=== PATIENT | male | born 1950 | race Hispanic/Latino ===

== ENCOUNTER 2017-10-24 16:52 | Outpatient (CLI) | payer MEDICARE, MEDICAID ==
--- NOTE | 2017-10-24 18:04 | RAD ---
LEFT TIBIA AND FIBULA TWO VIEWS: HISTORY: A 67-year-old male with a history of left leg injury and follow-up fracture. Prior surgery in [place] . Now has a wound over the inner aspect of the leg. FINDINGS: A metal plate and screws stabilize the distal fibula and lateral malleolus, and a wire and pin stabil ize the medial malleolus. 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 No evidence for a new fracture. I f there is clinical concern for osteomyelitis, follow-up non-emergent MRI might be of benefit. IMPRESSION: Postoperative changes of the medial and lateral ankle with severe arthrosis of the tibiotalar joint a nd associated deformity without acute fracture. If there is concern for osteomyelitis, consider foll ow-up non-emergent MRI. POS: [facility]
== END 2017-10-24 16:53 | disposition home or self-care (01) ==
LOC: SCSRAD 16:52
PROVIDERS: ATTEND Family Medicine
DX: L03.116 Cellulitis of left lower limb (principal); M19.072 Primary osteoarthritis, left ankle and foot; Z98.890 Other specified postprocedural states

== ENCOUNTER 2017-11-30 13:54 | Outpatient (CLI) | payer MEDICARE, OTHER ==
--- NOTE | 2017-12-01 09:30 | HP ---
DATE OF SERVICE: 11/30/2017 HISTORY OF PRESENT ILLNESS: Mr. Richard Lawler is a very pleasant 67-year-old gentleman who prese nts to the [facility] for evaluation of an ulceration of the left lateral ankle. The patient state s with his niece serving as baby registry sales consultant that 7-12 months ago he first experienced an ulceration of his left lateral lower leg. The patient states that the ulcerations of his left lateral lower leg are p resent on an intermittent basis. He states that the ulcer, now present, was first noted approximatel y 8-10 days ago. The patient has been receiving dressing changes for the ulceration of the left late ral lower leg with the assistance of Home Health. These dressing changes consist of Triple Antibioti c ointment followed by a Band-Aid and Tegaderm. The patient was referred to the Wound Center by Dr. Jimenez. The patient's niece states that Mr. Lawler was placed on a course of Bactrim by Dr. Chad perez. Apparently plain films of the left ankle were also obtained. PAST MEDICAL HISTORY: 1. History of TB, treated. 2. Cirrhosis. 3. Right buttock abscess. 4. Hypertension. PAST SURGICAL HISTORY: 1. Orthopedic surgery of right leg. 2. Multiple right and left ankle surgeries. The patient underwent left ankle surgery 4 years ago. MEDICATIONS: 1. Enalapril. 2. Bactrim. ALLERGIES: No known diagnosed allergies. SOCIAL HISTORY: Significant for heavy ETOH use in the remote past. The patient denies any history o f tobacco use. FAMILY HISTORY: Significant for diabetes mellitus. The patient's mother and 5 brothers were diagnos ed with diabetes mellitus. Family history is also significant for coronary artery disease. Apparent ly, the patient's mother was diagnosed with coronary artery disease. PHYSICAL EXAMINATION: VITAL SIGNS: Temperature 97.9, pulse 112, respirations 19, blood pressure 166/90. GENERAL: A 67-year-old gentleman lying on stretcher in examination room in no acute distress. HEENT: Normocephalic, atraumatic. NECK: No nuchal rigidity. CHEST: Clear to auscultation. CARDIAC: Regular rate and rhythm. ABDOMEN: Soft. EXTREMITIES: The ulceration of the left lateral ankle has healed completely. No cellulitis of the l eft ankle is present. No maceration of the skin of the left ankle is present. A posterior tibial pu lse is easily palpable on the left. No significant edema of the left foot or lower leg is present on exam today. NEUROLOGIC: Grossly nonfocal. ASSESSMENT AND PLAN: 1. 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 As stated above, this ulceration has healed c ompletely. The patient has been given a prescription for compression garments, knee high, open or cl osed toe to yield a compression of 20-30 mmHg. The patient has been instructed to apply the garments each morning and remove the garments at night. I have explained to the patient that the use of comp ression stockings may prevent any new or recurrent ulcerations. The patient has also been instructed to continue Bactrim DS as previously prescribed. Plain films of the left tibia and fibula obtained on 10/24/2017 showed postoperative changes of the medial and lateral ankle with severe arthrosis of t he tibiotalar joint and associated deformity without acute fracture. The patient and his niece under stand and are in agreement with the preceding treatment plan. Mr. Lawler will be discharged from [facility] today with followup on a p.r.n. basis. 2. History of tuberculosis treated. 3. Cirrhosis. 4. Right buttock abscess. 5. Hypertension.
== END 2017-11-30 13:55 | disposition home or self-care (01) ==
LOC: WCC 13:54
PROVIDERS: ATTEND Family Medicine
DX: I83.023 Varicose veins of left lower extremity with ulcer of ankle (principal); L97.329 Non-pressure chronic ulcer of left ankle with unspecified severity; L02.31 Cutaneous abscess of buttock; K74.60 Unspecified cirrhosis of liver; I10 Essential (primary) hypertension; Z86.11 Personal history of tuberculosis
CPT/HCPCS: 97139; 97602; G0463; 99203

== ENCOUNTER 2018-10-10 13:18 | Outpatient (CLI) | payer MEDICARE, MEDICAID ==
--- NOTE | 2018-10-10 13:51 | RAD ---
CHEST 2 VIEWS: HISTORY: Dyspnea. COMPARISON: 03/25/2012. FINDINGS: Chronic changes of the lung parenchyma. No pneumothorax. Stable cardiac silhouette. Old rib fractures are noted. IMPRESSION: Chronic fibrotic changes of the lung parenchyma. POS: [facility]
== END 2018-10-10 13:19 | disposition home or self-care (01) ==
LOC: RAD 13:18
PROVIDERS: ATTEND Internal Medicine Critical Care Medicine
DX: R06.00 Dyspnea, unspecified (principal); J98.4 Other disorders of lung
CPT/HCPCS: 71046

== ENCOUNTER 2018-10-16 09:10 | Outpatient (CLI) | payer MEDICARE, MEDICAID ==
--- NOTE | 2018-10-16 09:33 | PRG ---
DATE OF SERVICE: 10/16/2018 HISTORY: Mr. Richard Lawler is a very pleasant 67-year-old gentleman, who presents to the [facility] Center for evaluation of an ulceration of the left medial ankle. The patient was last seen in the Wound Center on 11/30/2017 for an ulceration of his left lateral lower leg. At the time the patient was seen, the ulceration of the left lateral ankle had healed completely and the patient was given a prescription for compression garments, knee-high, open or closed toe to yield a compression of 20-30 mmHg. With the aid of a university teacher, the patient states that his compression garment is in [place]. For the ulceration of the left medial ankle now present, the patient has been performing dressing changes of Medihoney and gauze as per Dr. Bosch. At the time of dressing changes, Desitin is being applied to the periwound. The patient was referred to the Wound Center by Dr. Bosch on 09/27/2018. PHYSICAL EXAMINATION: VITAL SIGNS: Temperature 97.5, pulse 106, respirations 20, blood pressure 139/74. EXTREMITIES: An ulceration of the left medial ankle is present, which measures approximately 0.4 x 0.3 cm. No purulent drainage is associated with the wound. No erythema of the skin surrounding the wound is present. No maceration of the skin of the periwound is noted. No significant edema of the left foot or lower leg is present on exam today. The ulceration is present over a bony prominence subsequent to severe arthrosis of the tibiotalar joint. DIAGNOSTIC DATA: Plain films of the left tibia and fibula obtained on 10/24/2017 showed postoperative changes of the medial and lateral ankle with severe arthrosis of the tibiotalar joint and associated deformity without acute fracture. ASSESSMENT AND PLAN: 1. 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 Today, the patient states that he has not noted any drainage associated with the ulceration. The patient has been instructed to perform dressing changes of Allevyn three times per week after cleansing and irrigation. For drainage, the patient is to utilize Medihoney followed by Allevyn three times per week after cleansing and irrigation. Arrangements will be made for the home delivery of dressing supplies. I will see Mr. Lawler again in 4 weeks. 2. History of tuberculosis, treated. 3. Cirrhosis. 4. Right buttock abscess. 5. Hypertension. Job ID: [id number]
[2018-10-16] MEDS ORDERED: Sodium Chloride 0.9% 15 ML NEB ONE (18:00)
== END 2018-10-16 09:11 | disposition home or self-care (01) ==
LOC: WCC 09:10
PROVIDERS: ATTEND Family Medicine
DX: I83.029 Varicose veins of left lower extremity with ulcer of unspecified site (principal); L97.929 Non-pressure chronic ulcer of unspecified part of left lower leg with unspecified severity; K74.60 Unspecified cirrhosis of liver; L02.31 Cutaneous abscess of buttock; I10 Essential (primary) hypertension
CPT/HCPCS: A4218

== ENCOUNTER 2019-05-07 12:49 | Outpatient (CLI) | payer MEDICARE, MEDICAID ==
--- NOTE | 2019-05-07 18:26 | RAD ---
CHEST TWO VIEWS: Date: 05-07-19 Comparison:03-25-12, 03-01-19, 10-10-18 History: Dyspnea FINDINGS: There are severe coarse increased linear interstitial densities noted throughout both lungs with an u pper lobe predominance, left greater than right. There is stable pleural thickening involving the lef t lung apex with retraction of the left hilum. No pneumothorax, pleural fluid, or lobar consolidation . The degree of linear interstitial density when compared to the 03-01-19 examination has improved within the lung bases. There has been no significant interval change when compared to the 10-10-18 examinati on. The degree of interstitial opacity has progressed in the lung bases when compared to 03-25-12. IMPRESSION: Persistent severe interstitial disease with an upper lobe predominance as detailed above. POS: [facility]
== END 2019-05-07 12:50 | disposition home or self-care (01) ==
LOC: RAD 12:49
PROVIDERS: ATTEND Internal Medicine Critical Care Medicine
DX: R06.00 Dyspnea, unspecified (principal); J84.89 Other specified interstitial pulmonary diseases
CPT/HCPCS: 71046

== ENCOUNTER 2019-05-07 14:37 | Inpatient (IN) | payer MEDICARE, MEDICAID ==
[~2019-05-07 14:37] MED LIST: Lidocaine 1% PF 5 ML VIAL ONE; Ondansetron PF 4 MG/2 ML Vial ONE; PROPOFOL 200 MG/20 ML VIAL ONE
[2019-05-07 17:04] LABS: #Basophils 0.1 thou/uL (0.0-0.2); #Eosinphils 0.1 thou/uL (0.0-0.7); #Monocytes 0.7 thou/uL (0.11-0.59); #Neutrophils 5.9 thou/uL (1.40-6.50); %Basophils 0.7 % (0.0-1.0); %Eosinophils 0.7 % (0.0-10.0); %Lymphocytes 12.4 % (21.0-51.0); %Monocytes 8.9 % (0.0-10.0); %Neutrophils 77.2 % (42.0-75.0); Hemoglobin 16.3 g/dL (14.0-18.0); Mean Corpuscular HGB CONC 35.1 g/dL (32.0-36.0); Mean Corpuscular Hemoglobin 34.7 pg (27.0-31.0); Mean Corpuscular Volume 98.9 fL (78.0-98.0); Mean Platelet Volume 7.6 fL (7.4-10.4); Platelet Count 175 thou/uL (130-400); RBC Distribution Width 12.5 % (11.5-14.5); White Blood Cell (WBC) Count 7.7 thou/uL (4.8-10.8)
[2019-05-07] MEDS ORDERED: Piperacillin/Tazobactam 4.5 GM VIAL ONE (17:08)
[2019-05-07 17:19] LABS: ALT (SGPT) 10 U/L (8-55); AST (SGOT) 18 U/L (5-34); Albumin 4.2 g/dL (3.4-4.8); Alkaline Phosphatase 83 U/L (40-110); Anion Gap 12 mmol/L (10-20); BUN (Urea Nitrogen) 12 mg/dL (8.4-25.7); Bilirubin, Total 1.7 mg/dL (0.2-1.2); CK (CPK) 72 U/L (30-200); Calc. Creatinine Clearance 0 mL/min (70-130); Calcium 9.4 mg/dL (7.8-10.44); Carbon Dioxide 23 mmol/L (23-31); Chloride 98 mmol/L (98-107); Estimated GFR-MDRD Greater than 90; Globulin 3.7 g/dL (2.4-3.5); Glucose 112 mg/dL (80-115); Potassium 4.5 mmol/L (3.5-5.1); Protein, Total 7.9 g/dL (5.8-8.1); Sodium 128 mmol/L (136-145)
--- NOTE | 2019-05-07 17:33 | RAD ---
MIDDLE DIGIT RIGHT HAND MINIMUM 2 VIEWS: CLINICAL HISTORY: Infection. FINDINGS: Abnormal soft tissue prominence of the distal aspect of the middle digit. There is osseous irregulari ty at the tuft with a small area of heterotopic/avulsed bone adjacent osseous defect of the distal phalangeal tuft. Scattered osteoarthritis. IMPRESSION: Soft tissue prominence at the distal third digit with associated osseous abnormality of the distal ph alangeal tuft. Underlying osteomyelitis is therefore not excluded. Recommend clinical correlation. Transcribed Date/Time: 05/07/2019 5:39 PM
[2019-05-07] MEDS ORDERED: Sodium Chloride 0.9% 0 ML ONE (23:42)
[2019-05-07] MEDS ORDERED: Bupivacaine PF 0.5% 30 ML VIAL ONE (23:42)
[2019-05-07] MEDS ORDERED: Bacitracin Zinc Ointment 30 gm TUBE ONE (23:42)
[2019-05-07] MEDS ORDERED: Fentanyl 100 MCG/2 ML VIAL ONE (23:50)
[2019-05-08] MEDS ORDERED: traMADol HCl 50 MG TAB PO PRN
[2019-05-08] MEDS ORDERED: Ondansetron PF 4 MG/2 ML Vial IVP PRN
[2019-05-08] MEDS ORDERED: Morphine 4 MG/ML VIAL SLOW IVP PRN
[2019-05-08] MEDS ORDERED: HYDROcodone/Acetaminophen 5/325 mg Tablet PO PRN
[2019-05-08] MEDS ORDERED: Milk Of Magnesia 30 ML UDCUP PO PRN
[2019-05-08] MEDS ORDERED: Acetaminophen 325 MG TAB PO PRN
[2019-05-08] MEDS ORDERED: Meperidine HCl/PF 25 MG/ML VIAL IM PRN (00:03)
[2019-05-08] MEDS ORDERED: Promethazine HCl 25 MG/ML VIAL IM PRN ×2 (00:56)
[2019-05-08] MEDS ORDERED: Ondansetron HCl/PF 4 MG/2 ML Vial IVP PRN (00:56)
[2019-05-08] MEDS ORDERED: Promethazine HCl 25 MG/ML VIAL SLOW IVP PRN (00:56)
[2019-05-08 02:23] VITALS: BMI 19.3
[2019-05-08] MEDS: Sodium Chloride 0.9% 1,000 ML IV SCH ×3 (02:34→23:06)
[2019-05-08] MEDS: Vancomycin HCl 750 MG in Sodium Chloride 0.9% 250 ML 250 ML IVPB SCH ×2 (05:30→17:04)
[2019-05-08 05:56] LABS: #Eosinphils 0.1 thou/uL (0.0-0.7); #Lymphocytes 1.4 thou/uL (1.20-3.40); #Monocytes 0.7 thou/uL (0.11-0.59); #Neutrophils 5.3 thou/uL (1.40-6.50); %Basophils 0.2 % (0.0-1.0); %Eosinophils 1.9 % (0.0-10.0); %Lymphocytes 18.6 % (21.0-51.0); %Monocytes 9.6 % (0.0-10.0); %Neutrophils 69.8 % (42.0-75.0); Hemoglobin 15.1 g/dL (14.0-18.0); Mean Corpuscular HGB CONC 35.5 g/dL (32.0-36.0); Mean Corpuscular Hemoglobin 35.4 pg (27.0-31.0); Mean Corpuscular Volume 99.6 fL (78.0-98.0); Mean Platelet Volume 7.7 fL (7.4-10.4); Platelet Count 159 thou/uL (130-400); RBC Distribution Width 12.6 % (11.5-14.5); Red Blood Cell (RBC) Count 4.26 mill/uL (4.70-6.10); White Blood Cell (WBC) Count 7.6 thou/uL (4.8-10.8)
[2019-05-08] MEDS ORDERED: TETANUS AND DIPHTHERIA TOX/PF 0.5 ML DISP.SYRIN IM SCH (09:00)
[2019-05-08] MEDS ORDERED: Vancomycin HCl 1 GM in Premix Bag 1 BAG IVPB SCH (09:00)
[2019-05-08] MEDS ORDERED: FLU VACC TS2019-20(65YR UP)/PF 180 MCG/0.5 ML SYRINGE IM ONE (09:00)
[2019-05-08] MEDS ORDERED: Prevnar 13-Val Conj/PF 0.5 ML SYRINGE IM ONE (09:00)
[2019-05-08] MEDS: Aspirin 81 mg Enteric Coated Tablet PO SCH ×2 (10:36→21:24)
[2019-05-09 06:41] LABS: Vancomycin, Trough 8.4 ug/mL
[2019-05-09] MEDS ORDERED: Vancomycin HCl 1 GM in Premix Bag 1 BAG IVPB SCH (08:00)
[2019-05-09] MEDS: Aspirin 81 mg Enteric Coated Tablet PO SCH (08:41)
[2019-05-09] MEDS: Sodium Chloride 0.9% 1,000 ML IV SCH ×2 (08:42→16:58)
[2019-05-09 08:58] VITALS: TEMP 98.3
[2019-05-09 12:14] VITALS: BP 137/81
--- NOTE | 2019-05-11 10:08 | OP ---
DATE OF PROCEDURE: 05/08/2019 PREOPERATIVE DIAGNOSES: 1. Subungual abscess, right middle finger. 2. Paronychia, right middle finger. POSTOPERATIVE DIAGNOSES: 1. Subungual abscess, right middle finger. 2. Paronychia, right middle finger. PROCEDURES PERFORMED: 1. Right middle finger paronychia incision and drainage. 2. Removal of right middle finger nail plate. SPECIMENS: Yes, culture x1. TOURNIQUET TIME: 4 minutes. FINDINGS: Abscess, beginning . DESCRIPTION OF PROCEDURE: After successful general endotracheal anesthesia, the limb was prepped and draped. We then gave the patient a 12 mL of 0.5% Marcaine block at the level of the right middle finger metacarpophalangeal joint. We then removed the nail, found the paronychia and then made an incision over the radial aspect of the periungual region, dissected down and removed the abscess. We also extended this incision 1 cm proximal to the nail matrix and found that the abscess that was under the skin, at the point just proximal to the nail matrix, was superficial and did not go down below the skin. We then left the approximately 15 mm incision open and released the tourniquet. We irrigated with 1 L of normal saline and then placed a 4 x 4 normal saline-soaked gauze piece underneath the skin flap and placed him in a bulky soft dressing. He left the operating room without evidence of anesthetic or operative complication. Job ID: [id number]
== END 2019-05-09 18:45 | disposition home or self-care (01) | DRG 603 ==
LOC: ERS 14:37 → SDC/OP 05-08 00:09 → ONC 05-08 00:11
PROVIDERS: ADMIT Orthopaedic Surgery Hand Surgery; ATTEND Orthopaedic Surgery Hand Surgery
PROC: 0H9FXZZ Drainage of Right Hand Skin, External Approach (ICD-10-PCS; principal; 2019-05-08)
DX: L02.511 Cutaneous abscess of right hand (principal); I10 Essential (primary) hypertension; L03.011 Cellulitis of right finger
CPT/HCPCS: 36415; 71046; 80053; 80202; 82550; 83605; 85025; 85652; 86140; 87040; 87070; 87077; 87186; 87205; 90471; 90662; 90670; 96365; 96367; G0008; G0009; J2001; J2405; J2543; J2704; J3010; J3370; J3490; J7050; S0020

== ENCOUNTER 2019-08-04 15:11 | Emergency (ER) | payer MEDICARE, OTHER ==
[2019-08-04 15:47] LABS: #Basophils 0.1 thou/uL (0.0-0.2); #Eosinphils 0.1 thou/uL (0.0-0.7); #Lymphocytes 1.1 thou/uL (1.20-3.40); #Monocytes 0.5 thou/uL (0.11-0.59); #Neutrophils 2.7 thou/uL (1.40-6.50); %Basophils 1.3 % (0.0-1.0); %Monocytes 11.4 % (0.0-10.0); %Neutrophils 60.4 % (42.0-75.0); Hemoglobin 17.9 g/dL (14.0-18.0); Mean Corpuscular HGB CONC 33.4 g/dL (32.0-36.0); Mean Corpuscular Hemoglobin 33.1 pg (27.0-31.0); Mean Corpuscular Volume 99.2 fL (78.0-98.0); Mean Platelet Volume 8.5 fL (7.4-10.4); Platelet Count 167 thou/uL (130-400); RBC Distribution Width 11.6 % (11.5-14.5); Red Blood Cell (RBC) Count 5.39 mill/uL (4.70-6.10); White Blood Cell (WBC) Count 4.5 thou/uL (4.8-10.8)
--- NOTE | 2019-08-04 15:58 | RAD ---
XR Chest 1 View Portable History: Shortness of breath Comparison: Radiograph April 2019 Findings: Extensive fibrosis and volume loss of both lungs, though asymmetrically worse on the left. No superimposed consolidation is appreciated. Impression: Findings of high-grade pulmonary fibrosis.
[2019-08-04 16:10] LABS: ALT (SGPT) 19 U/L (8-55); AST (SGOT) 22 U/L (5-34); Albumin 3.8 g/dL (3.4-4.8); Alkaline Phosphatase 83 U/L (40-110); Anion Gap 12 mmol/L (10-20); BUN (Urea Nitrogen) 17 mg/dL (8.4-25.7); Bilirubin, Total 0.8 mg/dL (0.2-1.2); Calc. Creatinine Clearance 0 mL/min (70-130); Calcium 9.1 mg/dL (7.8-10.44); Carbon Dioxide 29 mmol/L (23-31); Chloride 100 mmol/L (98-107); Estimated GFR-MDRD Greater than 90; Globulin 2.9 g/dL (2.4-3.5); Glucose 69 mg/dL (80-115); Protein, Total 6.7 g/dL (5.8-8.1); Sodium 137 mmol/L (136-145)
[2019-08-04] MEDS ORDERED: predniSONE 20 MG TAB ONE (16:22)
== END 2019-08-04 18:38 | disposition home or self-care (01) ==
LOC: ERS 15:11
DX: J44.1 Chronic obstructive pulmonary disease with (acute) exacerbation (principal); I10 Essential (primary) hypertension
CPT/HCPCS: 71045; 80053; 83605; 83880; 84484; 85025; 93005; J7512; J7620

== ENCOUNTER 2019-08-11 12:02 | Emergency (ER) | payer MEDICARE, OTHER ==
[~2019-08-11 12:02] MED LIST changes: +Iopamidol 370 76% 50 ML VIAL FS ONE; +Iopamidol-370 76% 500 ML 1 ML ONE; -Lidocaine 1% PF 5 ML VIAL ONE; -Ondansetron PF 4 MG/2 ML Vial ONE; -PROPOFOL 200 MG/20 ML VIAL ONE
[2019-08-11] MEDS ORDERED: Morphine 4 MG/ML VIAL ONE (12:32)
[2019-08-11 12:40] LABS: #Basophils 0.1 thou/uL (0.0-0.2); #Eosinphils 0.3 thou/uL (0.0-0.7); #Monocytes 0.4 thou/uL (0.11-0.59); #Neutrophils 2.9 thou/uL (1.40-6.50); %Basophils 1.2 % (0.0-1.0); %Eosinophils 6.5 % (0.0-10.0); %Lymphocytes 21.2 % (21.0-51.0); %Monocytes 9.5 % (0.0-10.0); %Neutrophils 61.6 % (42.0-75.0); Hemoglobin 17.7 g/dL (14.0-18.0); Mean Corpuscular HGB CONC 32.8 g/dL (32.0-36.0); Mean Corpuscular Hemoglobin 32.8 pg (27.0-31.0); Mean Platelet Volume 8.7 fL (7.4-10.4); Platelet Count 149 thou/uL (130-400); RBC Distribution Width 11.8 % (11.5-14.5); White Blood Cell (WBC) Count 4.7 thou/uL (4.8-10.8)
[2019-08-11 13:01] LABS: ALT (SGPT) 24 U/L (8-55); AST (SGOT) 22 U/L (5-34); Albumin 3.7 g/dL (3.4-4.8); Alkaline Phosphatase 75 U/L (40-110); Anion Gap 8 mmol/L (10-20); BUN (Urea Nitrogen) 11 mg/dL (8.4-25.7); Bilirubin, Total 1.1 mg/dL (0.2-1.2); Calc. Creatinine Clearance 0 mL/min (70-130); Calcium 9.2 mg/dL (7.8-10.44); Carbon Dioxide 33 mmol/L (23-31); Chloride 99 mmol/L (98-107); Estimated GFR-MDRD Greater than 90; Globulin 2.8 g/dL (2.4-3.5); Glucose 117 mg/dL (80-115); Lipase 29 U/L (8-78); Protein, Total 6.5 g/dL (5.8-8.1); Sodium 136 mmol/L (136-145)
[2019-08-11 13:20] LABS: Bilirubin Negative (Negative); Blood, Urine Negative (Negative); Clarity Extra Turbid (Clear); Glucose, Urine (Dipstick) Normal (Negative); Leukocyte Negative Leu/uL (Negative); Nitrite Negative (Negative); Protein, Urine (Dipstick) 10 mg/dL (Neg-Trace)
--- NOTE | 2019-08-11 15:23 | CT ---
EXAM: CT abdomen and pelvis with IV contrast PROVIDED CLINICAL HISTORY: Abdominal pain COMPARISON: None FINDINGS: Fibrotic changes are seen involving the visualized lung bases. Contrast material is seen within the d istal esophagus that may reflect gastroesophageal reflux. Evaluation is limited by patient respiratory motion. The solid abdominal organs demonstrate no significant abnormality. Bilateral renal hypodensities like ly reflecting cysts. There is no bowel dilatation, inflammatory fat stranding, free fluid or free air apparent. There is n o evidence for appendicitis. Gallstones are noted without associated gallbladder distention. There is moderate rectal fecal retention without evidence for surrounding fat stranding. No regional lymph node enlargement apparent. The regional major vascular structures appear unremarkable. The osseous structures demonstrate no concerning lytic or blastic lesions. IMPRESSION: No evidence for an acute process. Chronic findings as above.
== END 2019-08-11 16:00 | disposition home or self-care (01) ==
LOC: ERS 12:02
DX: R10.32 Left lower quadrant pain (principal); I10 Essential (primary) hypertension; Z79.899 Other long term (current) drug therapy
CPT/HCPCS: 74177; 80053; 81003; 83690; 85025; 96361; 96374; J2270; Q9967